=== PATIENT | male | born 1960 ===

== ENCOUNTER 2025-07-05 07:00 | Inpatient (IN) | payer OTHER ==
[~2025-07-05] VITALS: Ht 175.3 cm; Wt 88.5 kg
[2025-07-05 07:48] LABS: BASO % 0.9 % (0.1-1.2); EOS # 0.12 (0.04-0.54); EOS % 1.5 % (0.7-7.0); LYMPH # 2.99 (1.18-3.74); LYMPH % 38.4 % (19.3-53.1); MEAN PLATELET VOLUME 10.40 fl (9.4-12.4); MONO # 0.76 (0.24-0.82); MONO % 9.8 % (4.7-12.5); NEUT # 3.81 (1.56-6.13); NEUT % 49.0 % (34.0-71.1); RED CELL DISTRIBUTION WIDTH 13.1 % (11.6-14.4)
[2025-07-05] MEDS ORDERED: LIPITOR40 M1 PO (07:50)
[2025-07-05] MEDS ORDERED: METFORMIN HCL500 M3 PO (07:50)
[2025-07-05 07:52] VITALS: BP 148/88
[2025-07-05 07:56] LABS: URINE APPEARANCE Clear; URINE BILIRRUBIN Negative (NEGATIVE); URINE BLOOD Negative; URINE COLOR Yellow; URINE GLUCOSE Negative (NEGATIVE); URINE KETONE Negative (NEGATIVE); URINE LEUKOCYTE Negative; URINE NITRATE Negative; URINE PROTEIN Negative (NEGATIVE); URINE UROBILINOGEN 0.2 E.U./dl
[2025-07-05 07:59] LABS: URINE RBC 2.9 uL (0.0-20.8)
[2025-07-05 08:06] LABS: INR 1.01
[2025-07-05 08:12] LABS: COVID-19 AG NEGATIVE (NEGATIVE); URINE BACTERIA 0 uL (0.0-1933); URINE CAST 0.00 uL (0.0-1.40); URINE EPITHELIAL CELLS 1.3 uL (0.0-38.8); URINE WBC 1.2 uL (0.0-23.2)
[2025-07-05 08:14] LABS: BUN CREA RATIO 17.0 (7.0-25.0); CREATININE SERUM 1.02 mg/dL (0.70-1.30); GFR 73.07; GLUCOSE FASTING 147.0 mg/dL (65-100); OSMOLALITY SERUM 287.0 MOSM/KG (275-295)
[2025-07-12] MEDS ORDERED: CIPROFLOXACIN IN 5 % DEXTROSE 400 MG/200 ML PIGGYBAG IV ONE ×2 (06:13→08:00)
[2025-07-12] MEDS ORDERED: ENOXAPARIN SODIUM 40 MG/0.4 ML SYRINGE SUBCUTANEO ONE (06:13)
[2025-07-12] MEDS ORDERED: DOCUSATE SODIUM 100MG CAP PO SCH (09:00)
[2025-07-12] MEDS ORDERED: DEXTROSE 5 %-0.45 % SOD CHLORD 1,000 ML IV SCH (09:00)
[2025-07-12] MEDS ORDERED: SIMETHICONE 125 MG CAPSULE PO SCH (09:00)
[2025-07-12] MEDS ORDERED: CIPROFLOXACIN IN 5 % DEXTROSE 200 ML IV SCH (09:00)
[2025-07-12] MEDS ORDERED: ONDANSETRON HCL 2 MG/ML VIAL IV SCH (09:00)
[2025-07-12] MEDS ORDERED: SUGAMMADEX SODIUM 200 MG/2 ML VIAL IV ONE (12:33)
[2025-07-12 20:25] VITALS: BP 117/73; O2SAT 97
[2025-07-13] VITALS: BP 108/62; O2SAT 97
[2025-07-13] MEDS ORDERED: ACETAMINOPHEN WITH CODEINE 1 UDTAB TABLET PO PRN (06:30)
[2025-07-13 06:46] LABS: BASO % 0.5 % (0.1-1.2); EOS # 0.03 (0.04-0.54); EOS % 0.3 % (0.7-7.0); LYMPH # 2.06 (1.18-3.74); LYMPH % 18.6 % (19.3-53.1); MEAN PLATELET VOLUME 10.70 fl (9.4-12.4); MONO # 1.48 (0.24-0.82); NEUT # 7.44 (1.56-6.13); NEUT % 66.9 % (34.0-71.1); RED CELL DISTRIBUTION WIDTH 13.1 % (11.6-14.4)
[2025-07-13 07:44] LABS: MONO % 13.3 % (4.7-12.5)
[2025-07-13 08:00] VITALS: BP 107/71; O2SAT 96
[2025-07-13 09:45] LABS: BUN CREA RATIO 11.0 (7.0-25.0); CREATININE SERUM 1.0 mg/dL (0.70-1.30); GFR 74.76; GLUCOSE FASTING 125.0 mg/dL (65-100); OSMOLALITY SERUM 284.0 MOSM/KG (275-295)
[2025-07-13] MEDS ORDERED: DEXTROSE 50 % IN WATER 0.5 G/ML DISP.SYRIN IV PRN (11:00)
[2025-07-13] MEDS ORDERED: INSULIN LISPRO 1,000 UNIT/10 ML UNITS SUBCUTANEO PRN (11:00)
[2025-07-13 15:51] VITALS: BP 132/74; O2SAT 96
== END 2025-07-13 18:30 | disposition home or self-care (01) | DRG 708 ==
LOC: SURH 07-12 06:00 → O/R 07-12 06:00 → SURG 07-12 07:00 → SURH 07-12 15:18
PROVIDERS: ADMIT Urology; ATTEND Urology
PROC: 8E0W4CZ Robotic Assisted Procedure of Trunk Region, Percutaneous Endoscopic Approach (ICD-10-PCS; 2025-07-12)
PROC: 0VT04ZZ Resection of Prostate, Percutaneous Endoscopic Approach (ICD-10-PCS; principal; 2025-07-12 07:00)
DX: C61 Malignant neoplasm of prostate (principal)
CPT/HCPCS: 55866; S2900